=== PATIENT | male | born 1950 | race American Indian/Alaskan Native ===

== ENCOUNTER 2024-06-04 08:18 | Day surgery (SDC) | payer MEDICARE, OTHER ==
[2024-06-04] VITALS (8 sets, daily range): BP systolic 120–146; BP diastolic 65–83
[~2024-06-04] VITALS: Ht 177.8 cm; Wt 88.5 kg
[2024-06-04] MEDS ORDERED: ISOSORBIDE MONO30 MG PO (08:44)
[2024-06-04] MEDS ORDERED: ATORVASTATIN CA20 MG (08:45)
[2024-06-04] MEDS ORDERED: PLAVIX75 MG PO (08:45)
[2024-06-04] MEDS ORDERED: AMLODIPINE BESY10 MG PO (08:45)
[2024-06-04] MEDS ORDERED: FAMO20 (08:46)
[2024-06-04] MEDS ORDERED: METF500 (08:47)
[2024-06-04] MEDS ORDERED: NITROGLYCERIN0.4 M3 (08:47)
[2024-06-04] MEDS ORDERED: LISINOPRIL-HCT1 EACH PO (08:47)
[2024-06-04] MEDS ORDERED: METOPROLOL TAR100 M1 PO (08:48)
[2024-06-04] MEDS ORDERED: Heparin Sodium 1000 Units/ML 10ML MDV ONE ×2 (12:58→14:29)
[2024-06-04] MEDS ORDERED: NS 1,000 ML IV ONE ×2 (12:58→13:06)
[2024-06-04] MEDS ORDERED: NS 250 ML IV ONE ×2 (12:58→14:29)
[2024-06-04] MEDS ORDERED: FentaNYL Citrate 50 MCG/ML 2 ML Injection ONE ×2 (13:05→14:35)
[2024-06-04] MEDS ORDERED: Midazolam HCl 1MG / ML 2ML Vial ONE ×2 (13:05→14:35)
[2024-06-04] MEDS ORDERED: Nitroglycerin 2 MG/20 ML BTL ONE (14:33)
[2024-06-04] MEDS ORDERED: Protamine Sulfate 50 MG Amp ONE (14:59)
--- NOTE | 2024-06-04 16:02 | NUR ---
PATIENT TO RECOVERY ROOM S/P PERIPHERAL ANGIOGRAM. PT AWAKE, DENIES C/O PAIN. PT COUGHING (COUGHING PRIOR TO PROCEDURE). PT EDUCATED TO HOLD PRESSURE OVER LEFT GROIN WHILE COUGHING. GROIN CHECKED WITH EVERY COUGH, Q 15MIN AND PRN. LEFT GROIN SITE SOFT, WITHOUT SWEELING OR BLEEDING. SOME MILD TENDERNESS WITH GROIN CHECKS. PULSES VIA DOPPLER TO RIGHT AND LEFT PT/DP. LEFT DP DOPPLER IS FAINT BUT CAP REFILL IS <3SEC. PT FLAT AND IN REVERSE TREND. BP STABLE, HR BRADYCARDIC 50'S; BRADYCARDIA AT BASELINE.
--- NOTE | 2024-06-04 16:58 | NUR ---
DR VUONG IN TO CHECK ON PATIENT AND GIVE PATIENT UPDATE. OKAY TO DISCHARGE AFTER [address] VUONG. PT REMAINS FLAT IN REVERESE TREND. SITE AND PULSES REVIEWED W DR VUONG. PT VOIDED 400CC TO URINAL. LISSETTE SIPS/FLUIDS. LEFT GROIN REMAINS STABLE, PULSES UNCHANGED.
--- NOTE | 2024-06-04 16:58 | NUR ---
This patient verbally agreed to work with this student nurse today.
--- NOTE | 2024-06-04 17:32 | NUR ---
LEFT GROIN SITE REMAINS STABLE. PULSES TO BLE UNCHANGED. PT 30 DEGREES AT 1710 W/O ISSUES. PT 45 DEGRESS AT 1730 W/O ISSUES.
--- NOTE | 2024-06-04 18:13 | NUR ---
PT OOB TO CHAIR, THEN UP TO USE RESTROOM. LISSETTE WELL, LEFT GROIN REMAINS STABLE AND UNCHANGED. VERBAL AND WRITTEN DC INFORMATION GIVEN TO PT WITH CLEAR UNDERSTANDING. PT DC'D HOME IN STABLE CONDITION AT 1812. PT ESCORTED OUT VIA W/C. CARE HANDED OVER TO ANABELL WHOM IS DRIVING HIM HOME.
== END 2024-06-04 18:12 | disposition home or self-care (01) ==
LOC: MHTC 08:18
DX: E11.51 Type 2 diabetes mellitus with diabetic peripheral angiopathy without gangrene (principal); I70.223 Atherosclerosis of native arteries of extremities with rest pain, bilateral legs; I25.10 Atherosclerotic heart disease of native coronary artery without angina pectoris; K21.9 Gastro-esophageal reflux disease without esophagitis; E78.5 Hyperlipidemia, unspecified; I10 Essential (primary) hypertension; I25.2 Old myocardial infarction; F17.210 Nicotine dependence, cigarettes, uncomplicated; Z91.030 Bee allergy status; Z91.018 Allergy to other foods; Z79.899 Other long term (current) drug therapy
CPT/HCPCS: 36200; 75625; 75716; 75774; 76937; 85347; 93005; 93010; 99152; 99153; C1769; C1887; C1894; J1644; J2250; J2720; J3010; J7030; J7050; Q9967

== ENCOUNTER 2024-06-25 08:25 | Day surgery (SDC) | payer MEDICARE, OTHER ==
[2024-06-04 09:11] VITALS: BP 128/76
[~2024-06-25] VITALS: Ht 177.8 cm; Wt 88.5 kg
[~2024-06-25 08:25] MED LIST: AMLODIPINE BESY10 MG PO; ATORVASTATIN CA20 MG; FAMO20; ISOSORBIDE MONO30 MG PO; LISINOPRIL-HCT1 EACH PO; METF500; METOPROLOL TAR100 M1 PO; NITROGLYCERIN0.4 M3; PLAVIX75 MG PO
[2024-06-25 09:03] VITALS: BP 143/80
[2024-06-25] MEDS ORDERED: Heparin Sodium 1000 Units/ML 10ML MDV ONE (09:23)
[2024-06-25] MEDS ORDERED: NS 0 ML IV ONE (09:23)
[2024-06-25] MEDS ORDERED: NS 1,000 ML IV ONE (09:23)
--- NOTE | 2024-06-25 10:00 | NUR ---
MD PRESENT AT BEDSIDE. PROCEDURE CANCELLED AND WILL BE RESCHEDULED WITH ANESTHESIA. PIV REMOVED WITHOUT DIFFICULTY, CATHETER INTACT. PATIENT DISCHARGED HOME AT THIS TIME.
== END 2024-06-25 10:00 | disposition home or self-care (01) ==
LOC: MHTC 08:25
DX: I70.223 Atherosclerosis of native arteries of extremities with rest pain, bilateral legs (principal); Z53.9 Procedure and treatment not carried out, unspecified reason
CPT/HCPCS: J1644; J7030; J7050

== ENCOUNTER 2024-07-16 06:23 | Day surgery (SDC) | payer MEDICARE, OTHER ==
[~2024-07-16] VITALS: Ht 177.8 cm; Wt 88.5 kg
[2024-07-16] VITALS (15 sets, daily range): BP systolic 92–125; BP diastolic 59–95
[2024-07-16] MEDS ORDERED: NS 1,000 ML IV ONE ×2 (06:57→08:07)
[2024-07-16] MEDS ORDERED: Heparin Sodium 1000 Units/ML 10ML MDV ONE ×4 (06:57→09:14)
[2024-07-16] MEDS ORDERED: Nitroglycerin 2 MG/20 ML BTL ONE (06:57)
[2024-07-16] MEDS ORDERED: propofoL 20 ML IV ONE (07:08)
[2024-07-16] MEDS ORDERED: Lactated Ringer's 1,000 ML IV ONE ×2 (07:21→08:46)
[2024-07-16] MEDS ORDERED: ePHEDrine Sulfate 50 MG/ML 1ML Injection ONE (07:32)
[2024-07-16] MEDS ORDERED: SuccINYLCHOLINE Chloride 100 MG/5 ML 5MLSYR ONE (07:32)
[2024-07-16] MEDS ORDERED: Dexamethasone Sod Phos 10 MG/ML 1ML VIAL ONE (07:32)
[2024-07-16] MEDS ORDERED: Phenylephrine HCl 100 MCG/ML-NS 10MLSYR (1MG/10ML) ONE ×4 (07:32→10:42)
[2024-07-16] MEDS ORDERED: Ondansetron HCl 2 MG / ML 2ML Vial ONE (07:32)
[2024-07-16] MEDS ORDERED: NS 500 ML IV ONE (09:14)
[2024-07-16] MEDS ORDERED: FentaNYL Citrate 50 MCG/ML 2 ML Injection ONE (09:55)
[2024-07-16] MEDS ORDERED: Clopidogrel Bisulfate 300 MG TABLET ONE (10:46)
[2024-07-16] MEDS ORDERED: Aspirin 325 MG Tab ONE (10:47)
[2024-07-16] MEDS ORDERED: Protamine Sulfate 50 MG Amp ONE (11:00)
--- NOTE | 2024-07-16 11:59 | NUR ---
REPORT RECEIVED, TIBIAL DOPPLER TO LEFT LEG PRESENT, OTHERS ABSENT TO DOPPLER, VSS, INITIALLY NOT FOLLOWING COMMANDS, BUT NOW RESTING, REORIENTATION NOW LESS FREQUENT, SITE TO LEFT GROIN INTACT, CLEAN, NO HEMATOMA OR SWELLING, MONITORING CLOSELY DUE TO NONCOMPLIANCE FROM PATIENT EARLIER, MAINTAIN 100% ON O2 MASK AT 10L, TITRATING DOWN O2. DISTAL CIRCULATION APPEARS INTACT, GOOD CMS TESTABLE, D/C PENDING.
[2024-07-16] MEDS ORDERED: ASPI81CH PO (12:05)
--- NOTE | 2024-07-16 13:28 | NUR ---
CALL PLACED TO [facility] EARLIER FOR MESSAGE R/T ASA/PLAVIX ORDERS PER PROVIDER; MESSAGE LEFT. SAT PT UP AFTER 2 HOUR SUPINE ATTEMPT ORAL MEDS WITH WATER AT 30 DEGREE, PATIENT COUGH STATES PEPSI MORE TOLERABLE, WILL KEEP NPO UNTIL ABLE TO SIT HIGHER WELL, OTHERWISE COUGH INTERMITTENT, CLEAR, HOLDING PRESSURE AND OBEY COMMAND TO PRESSURE OVER SITE WITH COUGHING, VSS OTHERWISE, NOW ON ROOM AIR, MONITORING. BACK TO BASELINE PER PATIENT.
--- NOTE | 2024-07-16 13:32 | NUR ---
PLACED ON 2L NC FOR SAT 80'S, LOWER THAN PATIENT STATED NORMAL RANGE.
--- NOTE | 2024-07-16 15:22 | NUR ---
EARLIER SAT HOB UP AND PATIENT TOLERATED WELL, SITE REMAINED INTACT, NO PAIN OR SWELLING, NO HEMATOMA, AWARE OF S/SX TO WATCH FOR WELL PER PATIENT, "NOT MY FIRST RODEO", DENIED CONCERNS AT THAT TIME, AMBULATED RECENTLY TO RESTROOM, IV REMOVED, VSS, PLACED BACK TO ROOM AIR EARLIER AND O2 SATS REMAINED > 95%, SITE REMAINS INTACT, PATIENT GETTING DRESSED, CALL PLACED EARLIER TO FRIEND, ANABELL, WHO IS ON THE WAY AT PRESENT. DISCUSSED D/C INSTRUCTIONS IN BRIEF WITH PATIENT, COPY OF HOME MEDICATION LIST GIVEN WITH ASPIRIN ADDITIONAL, DR. VUONG DISCUSSED WITH PATIENT EARLIER AND PATIENT EARLIER TOOK LOADING DOSE 325 ASA AND 300 PLAVIX. NO CONCERNS OTHERWISE AT PRESENT TIME. STRONGLY ENCOURAGED SITE MONITORING WITH PATIENT FOR NEXT FEW DAYS WELL. D/C INSTRUCTIONS ALSO GIVEN, D/C OTHERWISE PENDING ARRIVAL OF ANABELL.
--- NOTE | 2024-07-16 15:49 | NUR ---
DISCUSSED D/C INSTRUCTIONS WITH PATIENT AND LATER WITH FRIEND ANABELL, ALSO DISCUSSED MONITORING SITE, FEMORAL SITE CARE INSTRUCTIONS, MED LIST AND F/U APPOINTMENT TIME, GIVEN INSTRUCTIONS TO PATIENT, PATIENT DRESSED EARLIER, TAKEN BY WHEELCHAIR ASSISTED BY KIDS AND LEFT AT 1445 WITH FRIEND. NO CONCERNS AT TIME OF DISCHARGE, SITE REMAINED INTACT, ABSENT OF HEMATOMA, IV REMOVED EARLIER, ENCOURAGED TO CALL/RETURN IF ANY ISSUES.
[2024-07-16] MEDS ORDERED: Glycopyrrolate 0.2 MG/ML 1MLVIAL IM ONE (18:53)
[2024-07-16] MEDS ORDERED: Phenylephrine HCl 100 MCG/ML-NS 10MLSYR (1MG/10ML) IV ONE (18:53)
[2024-07-16] MEDS ORDERED: ePHEDrine Sulfate 50 MG/ML 1ML Injection IM ONE (18:53)
== END 2024-07-16 15:45 | disposition home or self-care (01) ==
LOC: MHTC 06:23
DX: E11.51 Type 2 diabetes mellitus with diabetic peripheral angiopathy without gangrene (principal); I70.223 Atherosclerosis of native arteries of extremities with rest pain, bilateral legs; I25.10 Atherosclerotic heart disease of native coronary artery without angina pectoris; I10 Essential (primary) hypertension; E78.5 Hyperlipidemia, unspecified; K21.9 Gastro-esophageal reflux disease without esophagitis; G47.33 Obstructive sleep apnea (adult) (pediatric); Z95.5 Presence of coronary angioplasty implant and graft; F17.210 Nicotine dependence, cigarettes, uncomplicated; Z79.899 Other long term (current) drug therapy
CPT/HCPCS: 36140; 36246; 37252; 76937; A9270; C1725; C1753; C1769; C1874; C1887; C1894; C9765; J0330; J1100; J1644; J2371; J2405; J2704; J2720; J3010; J7030; J7040; J7120; Q9967